=== PATIENT | female | born 1985 | race Two or more races ===

== ENCOUNTER 2017-02-17 12:24 | Emergency (ER) | payer MEDICAID ==
[2017-02-17] MEDS ORDERED: KETOROLAC 30 MG/1 ML SDV IVP ONE (13:23)
[2017-02-17] MEDS ORDERED: DIAZEPAM 10 MG/2 ML SYR IVP ONE (13:24)
[2017-02-17 13:42] LABS: % IMMATURE GRANULYOCYTES 0.1 % (0.0-1.1); ABSOLUTE IMMATURE GRANULOCYTES 0.01 10^3/uL (0.00-0.10); ADD DIFF? NO; ADD MORPH? NO; ADD SCAN? NO; ATYPICAL LYMPHOCYTE FLAG 0 (0-99); FRAGMENT RBC FLAG 0 (0-99); HEMATOCRIT 41.8 % (38.0-47.0); HEMOGLOBIN 14.3 g/dL (12.6-16.3); LEFT SHIFT FLG 0 (0-99); LIPEMIA HEMOLYSIS FLAG 90 (0-99); MEAN CELL HEMOGLOBIN CONCENTR. 34.2 g/dL (32.4-36.7); MEAN CELL VOLUME 90.5 fL (81.5-99.8); MEAN PLATELET VOLUME 10.5 fL (8.7-11.7); PLATELET CLUMPS FLAG 0 (0-99); PLATELET COUNT 277 10^3/uL (150-400); RED BLOOD CELL COUNT 4.62 10^6/uL (4.18-5.33); RED CELL DISTRIBUTION WIDTH 12.1 % (11.5-15.2)
[2017-02-17 13:56] LABS: ANION GAP 16 mEq/L (8-16); CALCIUM 9.6 mg/dL (8.5-10.4); CARBON DIOXIDE 24 mEq/l (22-31); CHLORIDE 102 mEq/L (97-110); CREATININE 0.7 mg/dL (0.6-1.0); GLOMERULAR FILTRATION RATE > 60; GLUCOSE 92 mg/dL (70-100); POTASSIUM 3.6 mEq/L (3.5-5.2); SODIUM 142 mEq/L (134-144)
[2017-02-17] MEDS ORDERED: fentaNYL 100 MCG/2 ML INJ IVP ONE (14:49)
[2017-02-17] MEDS ORDERED: DIAZEPAM 5 MG PREPACK#4 BTL TAKEHOME ONE (16:21)
[2017-02-17] MEDS ORDERED: HYDROCOD/APAP 5/325 PREPACK#6 BTL TAKEHOME ONE (16:22)
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
[2017-02-17 16:41] VITALS: BP 115/62; PULSE 74; RESP 18; TEMP 98.1; O2SAT 96
== END 2017-02-17 16:41 | disposition home or self-care (01) ==
LOC: CED 12:24
DX: M54.5 Low back pain (principal)
CPT/HCPCS: 72100-PO; 73502-PO; 80048-PO; 84703-PO; 85025-PO; 96374; J1885; J3010